=== PATIENT | female | born 1950 | race Caucasian/White ===

== ENCOUNTER 2021-06-20 13:31 | Outpatient (CLI) | payer MEDICARE, OTHER, SELFPAY ==
[2021-06-20] MEDS: 0.9% Saline Lock 10 ML Syringe IV (14:05)
[2021-06-20 14:08] VITALS: BP 177/83; PULSE 81; RESP 16; TEMP 36.9; O2SAT 100; BMI 27.7
[2021-06-20 14:47] VITALS: BP 138/64; PULSE 69; RESP 16; TEMP 36.8; O2SAT 100
[2021-06-20 15:44] VITALS: BP 153/69; PULSE 63; RESP 16; TEMP 36.4; O2SAT 100
== END 2021-06-20 15:55 | disposition home or self-care (01) ==
LOC: MS3OUT 13:32 → MS3 13:32
PROVIDERS: Referring Provider Nurse Practitioner Adult Health; Visit Provider Nurse Practitioner Adult Health
DX: Z23 Encounter for immunization (principal); U07.1 COVID-19
CPT/HCPCS: J7050; M0245; Q0245; A4216